=== PATIENT | female | born 1940 | race Caucasian/White ===

== ENCOUNTER 2017-05-14 18:52 | Inpatient (IN) | payer MEDICARE, OTHER ==
--- OUTSIDE RECORDS SUMMARY | 2017-05-14 18:55 | XMS ---
:1940 Author Organization [facility] Care Team Providers Name Role Phone SHANELLE CAMPOS Unavailable Unavailable BETH, SHANELLE Unavailable Unavailable BETH, SHANELLE Unavailable Unavailable BETH, SHANELLE Unavailable Unavailable BETH, SHANELLE Unavailable Unavailable BETH, SHANELLE Unavailable Unavailable BETH, SHANELLE Unavailable Unavailable BETH, SHANELLE Unavailable Unavailable OZDIL, SALBADOR Unavailable Unavailable OZDIL, SALBADOR Unavailable Unavailable OZDIL, SALBADOR Unavailable Unavailable OZDIL, SALBADOR Unavailable Unavailable OZDIL, SALBADOR Unavailable Unavailable OZDIL, SALBADOR Unavailable Unavailable Mak Freire Unavailable Unavailable Mak Freire Unavailable Unavailable Jono, Balamurugan Unavailable Unavailable Jono, Balamurugan Unavailable Unavailable Mini, Eric Unavailable Unavailable PATURU, KARANAKARA Unavailable Unavailable PATURU, KARANAKARA Unavailable Unavailable Encounters Encounter Providers Location Date Indications Data Source(s) Outpatient Attender: SALBADOR 11/11/2016 DANIEL WINTERS MD 08:24:00 AM CDT - 11/11/2016 08:24:00 AM CDT Inpatient Attender: SALBADOR 04/17/2016 DANIEL WINTERS MD 11:35:00 AM CDT - 04/18/2016 03:04:00 PM CDT Outpatient Attender: 01/14/2016 [facility] Balamurugan 01:34:00 AM syncope Jono CDT - MDAdmitter: SHANELLE 01/16/2016 BETH 06:52:00 PM CDT Inpatient Attender: 12/22/2015 DANIEL TORRES 10:46:00 PM CDT - 12/25/2015 05:39:00 PM CDT Inpatient Attender: Mak 12/25/2015 DANIEL Freire MD 05:52:00 PM CDT - 01/08/2016 11:32:00 AM CDT Inpatient Attender: Eric 04/27/2015 DANIEL Morse MD 12:06:00 PM CDT - 04/28/2015 06:41:00 PM CDT Outpatient Attender: SALBADOR 10/02/2014 DANIEL WINTERS MD 10:16:00 AM 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 - 10/02/2014 10:16:00 AM 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 Insurance Providers Payer name Policy type Policy ID Covered Covered constitution party's Policy Plan / Coverage constitution party ID relationship to Syed Information type syed COMMERCIAL 2ND Other S [id number] MEDICARE B Medicare S [id number] Medicare NOT_VALID_[id number] Medicare NOT_VALID_[id number] Medicare [id number] Medicare NOT_VALID_L000 [id number] Medicare NOT_VALID_L000 [id number] Medicare NOT_VALID_[id number] Problems, Conditions, and Diagnoses Code Display Name Description Effective Dates Data Source(s) E03.9 Hypothyroidism, Hypothyroidism, 01/15/2016 MERVAT unspecified unspecified 12:00:00 AM CDT I95.1 Orthostatic hypotension Orthostatic 01/15/2016 MERVAT hypotension 12:00:00 AM CDT E87.1 Hypo-osmolality and Hypo-osmolality and 01/15/2016 MERVAT hyponatremia hyponatremia 12:00:00 AM CDT F41.9 Anxiety disorder, Anxiety disorder, 01/14/2016 MERVAT unspecified unspecified 01:34:00 AM CDT Z86.73 Prsnl hx of TIA (TIA), Personal history of 01/14/2016 MERVAT and cereb infrc w/o transient ischemic 01:34:00 AM CDT resid deficits attack (TIA), and cerebral infarction without residual deficits W18.30XD Fall on same level, Fall on same level, 01/14/2016 MERVAT unspecified, unspecified, 01:34:00 AM CDT subsequent encounter subsequent encounter S01.01XD Laceration without Laceration without 01/14/2016 MERVAT foreign body of scalp, foreign body of scalp, 01:34:00 AM CDT subs encntr subsequent encounter R32 Unspecified urinary Unspecified urinary 01/14/2016 MERVAT incontinence incontinence 01:34:00 AM CDT G91.9 Hydrocephalus, Hydrocephalus, 01/14/2016 MERVAT unspecified unspecified 01:34:00 AM CDT F32.9 Major depressive Major depressive 01/14/2016 MERVAT disorder, single disorder, single 01:34:00 AM CDT episode, unspecified episode, unspecified E03.9 Hypothyroidism, Hypothyroidism, 01/14/2016 MERVAT unspecified unspecified 01:34:00 AM CDT I73.9 Peripheral vascular Peripheral vascular 01/14/2016 MERVAT disease, unspecified disease, unspecified 01:34:00 AM CDT Z95.1 Presence of Presence of 01/14/2016 MERVAT aortocoronary bypass aortocoronary bypass 01:34:00 AM CDT graft graft Z95.5 Presence of coronary Presence of coronary 01/14/2016 MERVAT angioplasty implant and angioplasty implant 01:34:00 AM CDT graft and graft E78.5 Hyperlipidemia, Hyperlipidemia, 01/14/2016 MERVAT unspecified unspecified 01:34:00 AM CDT I10 Essential (primary) Essential (primary) 01/14/2016 MERVAT hypertension hypertension 01:34:00 AM CDT D72.829 Elevated white blood Elevated white blood 01/14/2016 MERVAT cell count, cell count, 01:34:00 AM CDT unspecified unspecified E87.1 Hypo-osmolality and Hypo-osmolality and 01/14/2016 MERVAT hyponatremia hyponatremia 01:34:00 AM CDT R55 Syncope and collapse Syncope and collapse 01/14/2016 MERVAT 01:34:00 AM CDT R55 Syncope and collapse Syncope and collapse 01/14/2016 MERVAT 01:34:00 AM CDT Z98.61 Coronary angioplasty Coronary angioplasty SDH status status I20.9 Angina pectoris, Angina pectoris, SDH unspecified unspecified F17.200 Nicotine dependence, Nicotine dependence, SDH unspecified, unspecified, uncomplicated uncomplicated I10 Essential (primary) Essential (primary) SDH hypertension hypertension E78.5 Hyperlipidemia, Hyperlipidemia, SDH unspecified unspecified R00.1 Bradycardia, Bradycardia, SDH unspecified unspecified I73.9 Peripheral vascular Peripheral vascular SDH disease, unspecified disease, unspecified E03.9 Hypothyroidism, Hypothyroidism, SDH unspecified unspecified I67.9 Cerebrovascular Cerebrovascular SDH disease, unspecified disease, unspecified E78.5 Hyperlipidemia, Hyperlipidemia, SDH unspecified unspecified Z95.1 Presence of Presence of SDH aortocoronary bypass aortocoronary bypass graft graft I25.10 Athscl heart disease of Aths[place] heart disease SDH [place] coronary artery of [place] coronary w/o ang pctrs artery w/o ang pctrs Z86.73 Prsnl hx of TIA (TIA), Prsnl hx of TIA (TIA), SDH and cereb infrc w/o and cereb infrc w/o resid deficits resid deficits I10 Essential (primary) Essential (primary) SDH hypertension hypertension I70.1 Atherosclerosis of Atherosclerosis of SDH renal artery renal artery I70.213 Athscl [place] arteries Athscl [place] arteries SDH of extrm w intrmt of extrm w intrmt jessie, bi legs jessie, bi legs F41.8 Other specified anxiety Other specified SDH disorders anxiety disorders 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 (current) SDH of aspirin use of aspirin Z79.01 senior living (current) use senior living (current) SDH of anticoagulants use of anticoagulants G47.00 Insomnia, unspecified Insomnia, unspecified SDH F10.10 Alcohol abuse, Alcohol abuse, SDH uncomplicated uncomplicated I73.9 Peripheral vascular Peripheral vascular SDH disease, unspecified disease, unspecified Z95.1 Presence of Presence of SDH aortocoronary bypass aortocoronary bypass graft graft I25.10 Athscl heart disease of [place] heart disease SDH [place] coronary artery of [place] coronary w/o ang pctrs artery w/o ang pctrs E03.2 Hypothyroidism due to Hypothyroidism due to SDH meds and oth exogenous meds and oth exogenous substances substances E78.5 Hyperlipidemia, Hyperlipidemia, SDH unspecified unspecified I10 Essential (primary) Essential (primary) SDH hypertension hypertension Z66 Do not resuscitate Do not resuscitate SDH R27.0 Ataxia, unspecified Ataxia, unspecified SDH G91.9 Hydrocephalus, Hydrocephalus, SDH unspecified unspecified I63.40 Cerebral infarction due Cerebral infarction SDH to embolism of unsp due to embolism of cerebral artery unsp cerebral artery Z88.0 Allergy status to Allergy status to SDH penicillin penicillin 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 F41.9 Anxiety disorder, Anxiety disorder, SDH unspecified unspecified F32.9 Major depressive Major depressive SDH disorder, single disorder, single episode, unspecified episode, unspecified F17.210 Nicotine dependence, Nicotine dependence, SDH cigarettes, cigarettes, uncomplicated uncomplicated N32.81 Overactive bladder Overactive bladder SDH I73.9 Peripheral vascular Peripheral vascular SDH disease, unspecified disease, unspecified E78.5 Hyperlipidemia, Hyperlipidemia, SDH unspecified unspecified Z95.1 Presence of Presence of SDH aortocoronary bypass aortocoronary bypass graft graft I25.10 [place] heart disease of [place] heart disease SDH [place] coronary artery of [place] coronary w/o ang pctrs artery w/o ang pctrs E03.9 Hypothyroidism, Hypothyroidism, SDH unspecified unspecified I10 Essential (primary) Essential (primary) SDH hypertension hypertension Z98.2 Presence of Presence of SDH cerebrospinal fluid cerebrospinal fluid drainage device drainage device E87.1 Hypo-osmolality and Hypo-osmolality and SDH hyponatremia hyponatremia I69.31 Cognitive deficits Cognitive deficits SDH following cerebral following cerebral infarction infarction 413.9 OTHER AND UNSPECIFIED ANGINA PECTORIS SDH ANGINA PECTORIS NEC/NOS V14.0 PERSONAL HISTORY OF HX-PENICILLIN ALLERGY SDH ALLERGY TO PENICILLIN V14.1 PERSONAL HISTORY OF HX-ANTIBIOT ALLERGY SDH ALLERGY TO OTHER NEC ANTIBIOTIC AGENT 311 DEPRESSIVE DISORDER NOT DEPRESSIVE DISORDER SDH ELSEWHERE CLASSIFIED NEC 300.00 ANXIETY STATE ANXIETY STATE NOS SDH UNSPECIFIED 244.9 UNSPECIFIED ACQUIRED HYPOTHYROIDISM NOS SDH HYPOTHYROIDISM 272.4 OTHER AND UNSPECIFIED HYPERLIPIDEMIA NEC/NOS SDH HYPERLIPIDEMIA 401.9 UNSPECIFIED ESSENTIAL HYPERTENSION NOS SDH HYPERTENSION 305.1 NONDEPENDENT TOBACCO TOBACCO USE DISORDER SDH USE DISORDER V45.81 POSTSURGICAL AORTOCORONARY BYPASS SDH AORTOCORONARY BYPASS STATUS 414.00 CORONARY COR ATH UNSP VSL SDH ATHEROSCLEROSIS OF NTV/GFT UNSPECIFIED TYPE OF VESSEL [place] OR GRAFT 786.59 OTHER CHEST PAIN CHEST PAIN NEC SDH 413.9 OTHER AND UNSPECIFIED ANGINA PECTORIS SDH ANGINA PECTORIS NEC/NOS 414.00 CORONARY COR ATH UNSP VSL SDH ATHEROSCLEROSIS OF NTV/GFT UNSPECIFIED TYPE OF VESSEL [place] OR GRAFT 401.9 UNSPECIFIED ESSENTIAL HYPERTENSION NOS SDH HYPERTENSION 272.4 OTHER AND UNSPECIFIED HYPERLIPIDEMIA NEC/NOS SDH HYPERLIPIDEMIA Surgeries/Procedures Procedure Date Indications Data Source(s) Fluoroscopy of R Low Extrem Art 04/17/2016 12:00:00 AM SDH using L Osm Contrast CDT Dilate of R Femor Art with 04/17/2016 12:00:00 AM SDH Drug-elut Intralum, Perc CDT Approach Fluoroscopy of R Low Extrem Art 04/16/2016 12:00:00 AM SDH using L Osm Contrast CDT Fluoroscopy of Bilateral Renal 04/16/2016 12:00:00 AM SDH Arteries using L Osm Contrast CDT Fluoroscopy of L Low Extrem Art 04/16/2016 12:00:00 AM SDH using L Osm Contrast CDT Dilation of Left Popliteal 04/16/2016 12:00:00 AM SDH Artery, Percutaneous Approach CDT Dilate of L Femor Art with 04/16/2016 12:00:00 AM SDH Drug-elut Intralum, Perc CDT Approach Dilation of L Renal Art with 04/16/2016 12:00:00 AM SDH Intralum Dev, Perc Approach CDT INSERT TEMP BLADDER CATH 01/14/2016 12:00:00 AM MERVAT CDT RPR S/N/AX/GEN/TRNK2.6-7.5CM 01/14/2016 12:00:00 AM MERVAT CDT Receptive/Expressive Language 12/27/2015 12:00:00 AM SDH Treatment CDT Communicative/Cognitive 12/27/2015 12:00:00 AM SDH Integration Skills Treatment CDT Gait Training/Ambulat Treatment 12/27/2015 12:00:00 AM SDH using Assist Equipment CDT Bed Mobility Treatment 12/27/2015 12:00:00 AM SDH CDT Transfer Training Treatment using 12/27/2015 12:00:00 AM SDH Assist Equipment CDT Therapeutic Exercise Treatment of 12/27/2015 12:00:00 AM SDH Musculosk Up Back/UE CDT Bathing/Showering Techniques 12/27/2015 12:00:00 AM SDH Treatment CDT Dressing Techniques Treatment 12/27/2015 12:00:00 AM SDH CDT Monitor of Central Nervous Electr 12/24/2015 12:00:00 AM SDH Activity, Real Estate Management Specialist Approach CDT
[2017-05-14 20:11] LABS: #Eosinphils 0.1 thou/uL (0.0-0.7); #Lymphocytes 1.8 thou/uL (1.20-3.40); #Monocytes 0.6 thou/uL (0.11-0.59); #Neutrophils 3.7 thou/uL (1.40-6.50); %Basophils 0.1 % (0.0-1.0); %Eosinophils 1.6 % (0.0-10.0); %Lymphocytes 28.7 % (21.0-51.0); %Monocytes 9.9 % (0.0-10.0); Hematocrit 35.6 % (36.0-47.0); Mean Platelet Volume 6.9 fL (7.4-10.4); Red Blood Cell (RBC) Count 3.59 mill/uL (4.20-5.40); White Blood Cell (WBC) Count 6.2 thou/uL (4.8-10.8)
[2017-05-14 20:36] LABS: ALT (SGPT) 14 U/L (8-55); AST (SGOT) 18 U/L (5-34); Alkaline Phosphatase 108 U/L (40-150); Anion Gap 15 mmol/L (10-20); BUN (Urea Nitrogen) 8 mg/dL (9.8-20.1); Bilirubin, Total 0.4 mg/dL (0.2-1.2); Calc. Creatinine Clearance 0 mL/min (70-130); Calcium 8.8 mg/dL (7.8-10.44); Carbon Dioxide 22 mmol/L (23-31); Chloride 105 mmol/L (98-107); Estimated GFR-MDRD 79; Globulin 2.5 g/dL (2.4-3.5); Protein, Total 6.4 g/dL (6.0-8.3)
[2017-05-14] MEDS ORDERED: Acetaminophen/Codeine 30-300mg Tablet PO PRN ×2 (22:31)
[2017-05-14 22:44] LABS: PTT 34.6 SEC (22.9-36.1); Prothrombin Time 13.7 SEC (12.0-14.7)
[2017-05-14] MEDS ORDERED: Piperacillin/Tazobactam 3.375 GM in Sodium Chloride 0.9% 100 ML IVPB SCH (23:00)
--- NOTE | 2017-05-15 00:15 | MRI ---
MRI OF THE LUMBAR SPINE WITHOUT CONTRAST: 05/14/17 INDICATION: 76-year-old female with postop incision leaking; history of back surgery on April 01 with history of wound drainage since . TECHNIQUE: Multiplanar and multisequence MR images were obtained of the lumbar spine without IV contrast. No co mparisons are available. FINDINGS: There is postsurgical change of laminectomy at L4 with a right partial laminotomy at L5. There is a prominent, heterogeneous, but predominantly T2 hyperintense signal abnormality seen posterior to the thecal sac at the operative site spanning L4 through the superior aspect of L5 measuring 2.5 x 2.7 x 5.7 cm in its greatest mediolateral, AP and craniocaudal dimensions respectively. There is some so ft tissue gas seen superficially near the incision site overlying the posterior spine on image 16 of series 3. Conus is seen to terminate at approximately L1. At L5-S1, there is a broad based bulge with facet joint degenerative change without appreciable cent ral canal or neural foraminal narrowing. At L4-5, there is a broad based bulge with facet joint degenerative change inducing moderate to zeke re right and mild left neural foraminal narrowing. At L3-4, there is a broad based disc osteophyte complex with facet joint degenerative change inducin g mild central canal narrowing. There is mild to moderate bilateral neural foraminal narrowing. At L2-3, there is a broad based bulge with facet joint degenerative change and mild central canal na rrowing with mild to moderate left neural foraminal narrowing. At L1-2, there is a broad based bulge with facet joint degenerative change. At T12-L1, there is no appreciable central canal or neural foraminal narrowing. IMPRESSION: 1. Postoperative changes of laminectomy at L4 and partial laminotomy at L5 with suspected posto perative fluid collection seen at the laminectomy sites at L4 and L5. 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 Recommend appropriate clinical followup. 2. Moderate to severe right and mild left sided neural foraminal narrowing at L4-5. 3. Mild to moderate bilateral neural foraminal narrowing at L3-4. 4. Mild to moderate left sided neural foraminal narrowing at L2-3. POS: [facility]
[2017-05-15 00:35] VITALS: BMI 20.2
[2017-05-15] MEDS: Sodium Chloride 0.9% 1,000 ML IV SCH ×2 (00:52→17:23)
[2017-05-15] MEDS: Levothyroxine Sodium 100 MCG TAB PO SCH (05:25)
--- NOTE | 2017-05-15 07:04 | HP ---
HISTORY OF PRESENT ILLNESS: Ms. Carbajal comes in to the Emergency Department tonight at [facility] with a lumbar incision that is dehisced and draining at most inferior aspect. She has a previous L3-L4 laminectomy with Dr. Olsen on 04/01. The incision started draining last week on . The fluid looks green and thick. She was started on Keflex by Dr. Olsen at that time and she has been taking the Keflex daily. She came in for evaluation of the lumbar spinal incision and drainage. Neurosurgery was consulted as she was having low back pain and we ordered an MRI. She does have a history of being on Plavix and aspirin. PAST MEDICAL HISTORY: Includes hypertension,brain cyst. PAST SURGICAL HISTORY: Includes L3-L4 laminectomy with Dr. Olsen on 04/01/2017 , thoracic CABG x3, cardiac stent x3, leg stent left x2 and right x1, brain shunt left and hysterectomy. PSYCHIATRIC HISTORY: Includes anxiety. SOCIAL HISTORY: Includes patient drinks every day, less than 5 drinks per day. She currently uses tobacco and smokes about a half pack a day. CURRENT MEDICATIONS: No recorded medications. ALLERGIES: No known drug allergies. REVIEW OF SYSTEMS: Patient admits to lumbar spinal drainage from incision postop. All other review of systems is negative, unless otherwise stated in the above HPI. PHYSICAL EXAMINATION: VITAL SIGNS: Have been reviewed and she is afebrile and she has got stable vital signs. GENERAL: The patient appears nontoxic and appears pain free. Alert and oriented to person, place and time. HEENT: Normocephalic and atraumatic. Hearing intact. Moist mucous membranes. Eyes: Pupils are equal and reactive to light. Extraocular muscles are intact. Sclerae is white and nonicteric. RESPIRATORY: The patient has bilateral symmetric chest rise. Appears to be in no shortness of breath. CARDIOVASCULAR: The patient has regular rate and rhythm, normal S1 and S2 heart sounds. Appears to have no distal cyanosis or clubbing. BACK: Include findings of the incision as well approximated small opening in the inferior aspect drainage that is greenish purulent discharge. Range of motion is normal and there is no tenderness to the midline lumbar spine. EXTREMITIES: Upper extremity shows exam is normal, has good strength bilaterally in the upper extremities. Pulses are equal and symmetric in the brachial and radial pulses. Lower extremity: Patient has bilateral 5/5 strength in the lower extremity. She has good pulses in the posterior tibial pulse. NEUROLOGIC: The patient is alert and oriented x3. Cranial nerves II-XII are grossly intact. Her speech is fluent and she answered my questions appropriately. There are no focal motor deficits. There are no focal sensory deficits on exam. ASSESSMENT: Ms. Christina Carbajal is a 76-year-old female with a postoperative lumbar spinal infection. PLAN: I will admit to Neurosurgery service. We will start her on IV vancomycin and Zosyn. I will consult Dr. Santoyo, Infectious Disease for his recommendations. The wound has been cultured in the ER, so we will be awaiting cultures. An MRI of the lumbar spine showed a fluid collection under the area of the incision on the lumbar spine. Patient's CRP on chemistry exam is 4.28 and on the hematology exam, ESR is 3.9 with a white blood cell count of 6.2. Her hemoglobin is 12.1. She can continue to have regular diet. We will stop all aspirin and Plavix or any blood thinners or fish oil. I have reviewed the images with Dr. Rondon, he agrees with my plan and we will see her in the morning for further recommendations. If there are any further questions, please feel free to contact Neurosurgery. [facility]
[2017-05-15] MEDS ORDERED: Sodium Bicarbonate 2.4 MEQ/5 ML ONE (11:00)
[2017-05-15] MEDS: Polyethylene Glycol 3350 17 GM Packet PO SCH (12:03)
[2017-05-15] MEDS: Vancomycin HCl 750 MG in Sodium Chloride 0.9% 250 ML 250 ML IVPB SCH ×2 (12:03→22:52)
[2017-05-15] MEDS: Valsartan 80 MG TAB PO SCH (12:04)
[2017-05-15] MEDS: Isosorbide Dinitrate 20 MG TAB PO SCH (12:05)
[2017-05-15] MEDS: Senokot S 8.6-50 MG TAB PO SCH ×2 (12:05→20:00)
[2017-05-15 14:01] LABS: BF Reference Range Comment Note:
--- NOTE | 2017-05-15 14:01 | CT ---
CT GUIDED POSTERIOR SPINAL FLUID ASPIRATION: HISTORY: Possible abscess along the posterior post surgical site. TECHNIQUE: Informed consent was obtained from the patient. The L4 laminectomy, as well as the fluid collection were localized using CT guidance. The overlying skin was prepped and draped in the usual sterile m john. A 1% Lidocaine solution was used to anesthetize the overlying soft tissues. A 20 gauge spin al needle was placed into the collection. Approximately 1.5 mL of yellowish-clear fluid was removed . This was done in two separate aspirations. The specimens were sent to pathology. IMPRESSION: Successful CT-guided posterior L4 fluid aspiration. Pathology is pending. POS: [facility]
[2017-05-15 14:11] LABS: BF Color Yellow; RBC Count-Automated 10000 /cumm
[2017-05-15 14:46] LABS: Number Cells Counted-Fluids 100
--- NOTE | 2017-05-15 17:55 | PRG ---
DATE OF SERVICE: 05/15/2017 I personally interviewed and examined the patient and agree with documentation of FRACISCO Kraft ated 05/14/2017. Briefly, Christina Carbajal is a patient of Dr. Duarte who underwent low lumbar decompression about 6 weeks ago. She began having some drainage from her incision and had it oversewn. She returns with minim al dehiscence of the inferior portion of the incision and continued drainage. She is not troubled b y any headache. She does not have any positional headache. There are no radicular features of her pain. Back is not particularly painful and she is simply concerned about the drainage itself. On examination, there is good neurological function. She remains on Plavix for stroke prevention in the setting of carotid disease. She took her Plavix yesterday but not today. Because Ms. Carbajal is on Plavix, I do not recommend any surgical intervention at all. I am going to h ave our Neurosurgery team see if Radiology could advance a tiny needle through the musculature away from the previous incision site and away from superficial tissues into a small fluid collection post erior to the lamina at the depth of the incision. We will culture that separately from a superficia l culture, which we can take ourselves from fluid coming from the incision. With antimicrobial sens itivity, we can design an antibiotic regimen for her. I do not plan any surgical intervention given the Plavix issue.
[2017-05-15] MEDS: traZODone HCl 50 MG TAB PO SCH (20:00)
[2017-05-15] MEDS: Montelukast Sodium 10 mg Tablet PO SCH (20:01)
[2017-05-15] MEDS: Atorvastatin Calcium 40 MG TAB PO SCH (20:01)
[2017-05-15] MEDS ORDERED: Vancomycin HCl 1 GM in Premix Bag 1 BAG IVPB SCH (21:00)
[2017-05-16] MEDS: Levothyroxine Sodium 100 MCG TAB PO SCH (06:03)
--- NOTE | 2017-05-16 08:50 | PRG ---
DATE OF SERVICE: 05/16/2017 NEUROSURGERY PROGRESS NOTE SUBJECTIVE: I saw Ms. Carbajal this morning in her hospital room. She was resting comfortably. She un derwent her interventional radiology procedure yesterday as well as a swab of the superficial portio n of the incision. She still has no fevers. On examination this morning, there is good strength an d sensation in the lower extremities. Swab of the superficial area of dehiscence is growing some gram-positive cocci. A CT guided aspirat e of the lower fluid collection behind the dura above the lamina showed some serous fluid without an y organisms on Gram stain. We will await final cultures and adjust antibiotics. Dr. Olsen will be back tomorrow and consider a wound VAC or referral to wound care and I do think surgical interventi ons can be warranted.
[2017-05-16] MEDS: Polyethylene Glycol 3350 17 GM Packet PO SCH (09:44)
[2017-05-16] MEDS: Isosorbide Dinitrate 20 MG TAB PO SCH (09:46)
[2017-05-16] MEDS: Valsartan 80 MG TAB PO SCH (09:46)
[2017-05-16] MEDS: Sodium Chloride 0.9% 1,000 ML IV SCH (09:49)
[2017-05-16] MEDS: Senokot S 8.6-50 MG TAB PO SCH ×2 (09:49→21:22)
[2017-05-16] MEDS: Vancomycin HCl 750 MG in Sodium Chloride 0.9% 250 ML 250 ML IVPB SCH (11:10)
[2017-05-16] MEDS: Montelukast Sodium 10 mg Tablet PO SCH (21:22)
[2017-05-16] MEDS: traZODone HCl 50 MG TAB PO SCH (21:22)
[2017-05-16] MEDS: Atorvastatin Calcium 40 MG TAB PO SCH (21:23)
[2017-05-16 22:44] LABS: Vancomycin, Trough 10.1 ug/mL
[2017-05-17] MEDS: Vancomycin HCl 750 MG in Sodium Chloride 0.9% 250 ML 250 ML IVPB SCH ×3 (00:04→23:23)
[2017-05-17] MEDS: Sodium Chloride 0.9% 1,000 ML IV SCH ×2 (00:04→12:24)
--- NOTE | 2017-05-17 00:43 | CON ---
DATE OF CONSULTATION: 05/16/2017 REASON FOR CONSULTATION: Post-laminectomy infection. 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 History of also hypertension , dyslipidemia, and hysterectomy. ALLERGIES: None. MEDICATIONS: Hydralazine, Imdur, losartan, Norvasc, aspirin, Lipitor, Celexa, Cymbalta, Synthroid, and Singulair. SOCIAL HISTORY: Current smoker and drinks daily about 3 to 4 drinks plus wine. She lives with [facility] and in [place], both retired. FAMILY HISTORY: Cardiomyopathy and stomach cancer. PHYSICAL EXAMINATION: VITAL SIGNS: T-max 98.5, blood pressure 140/60, pulse 60, respirations 18, O2 sat 96%. GENERAL: Appears in no distress, awake, alert, and oriented. HEENT: Ocular movements are conjugate. Sclerae are white. Oral cavity is moist. NECK: Supple. LUNGS: Clear to auscultation and percussion. HEART: Normal. ABDOMEN: Soft. Not distended. BACK: Incision with the lower end with orifice, which is draining purulent exudate. EXTREMITIES: No joint inflammatory activity. NEUROLOGIC: Nonfocal. Cognitive function is intact. LABORATORY DATA: White cell count 6.2, hemoglobin 12, platelets 206 with a normal differential. IN R is 1.0. Sodium 139, creatinine 0.72. She has liver profile, which is normal. CRP 4.28 and aspir ate from the laminectomy sites fluid collection with 409 wbc's, 87% lymphocytes, and 8% neutrophils. The lumbar aspirate with no organisms seen, few wbc's seen and no growth at 24 hours, and from the lumbar abscess there is Staph aureus retrieved. Currently, the patient is on Zosyn and vancomycin. Lumbar spine MRI on 05/14/2017, which shows post-surgical laminectomy change L4-L5. T2 hyperinten se signal abnormality posterior to the thecal sac at the operative site spanning L4 through L5, marvel uring 2.5 x 2.7 x 5.7 cm and some soft tissue gas seen superficially near the incision. ASSESSMENT: 1. History of ventriculoperitoneal shunt for management of some cyst. 2. Recent laminectomy with improvement in symptoms, but now development of inflammatory changes. T he ascites associated with deeper fluid collection with measurements as described above. The nature of the fluid appears different than the nature of superficial exudate that has been submitted for c ultures. DISCUSSION: The patient has this area in the lower back and the main concern is that communication between the superficial wound in the deeper aspect of the area where the fluid collection is located close to the thecal sac. I think it is safer to assume that there is a communication and the fluid is colonized, the cultures are pending, though. The cyst aspiration CT was done on 05/15/2017. Th e patient had been given antimicrobials orally, which might have suppressed the growth of any bacter ia from that aspirate, so there is something to keep in the back of our minds is the interpretation of the results of cultures. She probably will need exploration of the area. A CSF leak is another possibility. I believe that the area was tested for a CSF leak. We will discontinue Zosyn and cont inue vancomycin alone until final results of cultures and then Dr. Olsen to decide tomorrow if he w ill explore the area prior to placement of negative pressure dressing. I would probably err on the side of treating her with IV antimicrobial therapy for few weeks to prevent any further complication s.
[2017-05-17] MEDS: Levothyroxine Sodium 100 MCG TAB PO SCH (06:22)
[2017-05-17] MEDS: Isosorbide Dinitrate 20 MG TAB PO SCH (10:45)
[2017-05-17] MEDS: Valsartan 80 MG TAB PO SCH (10:49)
[2017-05-17] MEDS: Polyethylene Glycol 3350 17 GM Packet PO SCH (10:49)
[2017-05-17] MEDS: Senokot S 8.6-50 MG TAB PO SCH ×2 (10:49→21:05)
[2017-05-17] MEDS ORDERED: Aspirin 325 MG TAB PO SCH (12:45)
--- NOTE | 2017-05-17 18:34 | PRG ---
DATE OF SERVICE: 05/17/2017 Ms. Carbajal was admitted over the weekend due to concerns of wound drainage. I have seen her in clinic on Wednesday for a pinhole area in her wound that was draining slightly yellow-tinged fluid that ap peared to be serous. She did not have any other systemic signs of infection or fever. We initiated antibiotic therapy and on Wednesday I was contacted, 2 days after, she felt the drainage had changed m ore green and thicker content. As such she come to the emergency room to be evaluated as I was conc erned about infection. Over the weekend she had a CT guided aspiration of the deeper fluid collecti on that in my opinion on MRI appears quite cleared to be a seroma. This has not grown out any bacte guillermo nor was it positive on Gram stain. Further the cell type appears to be lymphocytic nature and more consistent with this sterile postoperative seroma. This is bright on T2 whereas just under her wound, there is a T2 hypointense region in the area of the fat just beneath the skin. I suspect th is is the area that treating the drainage. I do not suspect that she has a deep infection. She has not had fever. She has not have increased back or leg pain and frankly appears to be doing very we ll both clinically and radiologically in regards to original reason, we did the surgery. I am shayne rned about the superficial area of dehiscence in the subcutaneous region that is essentially related to a space of fat necrosis and possibly even an infection as we do have a positive growth of oxacil gregory sensitive Staph aureus from the superficial collection that is draining out of the wound. The d rainage has reduced both on my observation this morning compared to last Wednesday and the patient's opinion. There is a mild amount of drainage on the dressing this morning, whereas before she was c hanging the dressing up to 4 times daily. This is the first time that has been changed since 7:00 p .m. last night and I am seeing her at 7:00 a.m. this morning. I looked at her temperature curve. S he has been afebrile. She does not have leukocytosis. She has mildly elevated sed rate and does yip ve an elevated CRP as such. Neurologically, she has done very well. What I would like to do at this point and I have discussed her case with Dr. Santoyo and my partner, Dr. Rondon to saw her over the weekend. I would like to continue the IV vancomycin. I suspect she has a superficial wound infection as noted early in my no te and what I would like to do is treat her with the IV vancomycin today and perhaps to the start of tomorrow, but initiate oral Levaquin today. It appears that the only growth that we have is sensit isis to Levaquin. I do think that she is responding to the oral antibiotics. I think that is taking her back to surgery is not without risk obviously, but it particular from Ms. Carbajal, she has bilater al carotid stenosis and as such, she is off of her Plavix currently and has been since Wednesday. I wi ll initiate her back on full strength aspirin to provide her with some protection against TIA is fol lowing her surgery last month. She did develop symptoms of TIA just off her antiplatelet medication . She is even being scheduled by Dr. Rea for surgery on her carotids. I think that allowing her to be on aspirin at this point, further for the foreseeable future, allows us the opportunity should we need to go back to surgery, we will be able to do so. The problem with Plavix is obviously that significantly limits operative intervention for perhaps a week. I would not be against operating w ith the patient on full strength aspirin, however, only should have been necessary. We will follow her wound today and then to tomorrow. I discussed the case again with Dr. Santoyo, we will plan for a couple weeks of oral antibiotics at this point and follow up closely in my clinic. I discussed all this with the patient, she understands the plan. She is appreciative of the evaluation.
[2017-05-17] MEDS: traZODone HCl 50 MG TAB PO SCH (21:06)
[2017-05-17] MEDS: Montelukast Sodium 10 mg Tablet PO SCH (21:06)
[2017-05-17] MEDS: Atorvastatin Calcium 40 MG TAB PO SCH (21:06)
--- NOTE | 2017-05-17 21:28 | HP ---
Date of service: 05/17/2017 SUBJECTIVE: Ms. Carbajal is feeling well. No headaches, respiratory symptoms. No abdominal pain to sp eak of. Low back pain. OBJECTIVE: VITAL SIGNS: She is afebrile. BP 140/65, pulse 58, respirations 14-20, O2 saturation 95%. GENERAL: Appears in no distress, awake, alert, oriented. The wound is with less drainage. LUNGS: Clear. HEART: S1, S2, regular rate. NEUROLOGIC: Unchanged. LABORATORY DATA: White cell count 6.2 and the culture is still negative from the aspirate. The cul ture from the open wound was Staphylococcus aureus which is methicillin susceptible. ASSESSMENT AND DISCUSSION: Laminectomy with now what appears to be a superficial infection. After discussion with Dr. Olsen, I believe that if the aspirate culture is still negative, then we can tr ansition her to quinolone, for example, to continue treatment in the outpatient setting. I explaine d to the patient that there is still a risk of recrudescence of the infection. In that case, she wo uld require surgical debridement again and then IV antimicrobials, but hopefully, this will take car e of the problem.
[2017-05-18] MEDS: Sodium Chloride 0.9% 1,000 ML IV SCH ×2 (02:58→15:29)
[2017-05-18] MEDS: Levothyroxine Sodium 100 MCG TAB PO SCH (05:49)
[2017-05-18] MEDS ORDERED: Aspirin 325 MG TAB PO SCH (09:00)
[2017-05-18] MEDS: Valsartan 80 MG TAB PO SCH (11:25)
[2017-05-18] MEDS: Isosorbide Dinitrate 20 MG TAB PO SCH (11:25)
[2017-05-18] MEDS: Senokot S 8.6-50 MG TAB PO SCH (11:27)
[2017-05-18] MEDS: Polyethylene Glycol 3350 17 GM Packet PO SCH (11:27)
[2017-05-18] MEDS: Vancomycin HCl 750 MG in Sodium Chloride 0.9% 250 ML 250 ML IVPB SCH (11:33)
--- NOTE | 2017-05-18 15:57 | PRG ---
DATE OF SERVICE: 05/18/2017 SUBJECTIVE: Ms. Carbajal who has developed improvement in her wound drainage. I can express nothing fr om her wound this morning and the dressing has just been changed by nursing team, which should there is very minimal amount of drainage. We will continue to watch this morning. We have initiated Lev aquin as I discussed with Dr. Santoyo, her cultures. I do not suspect she has a deep wound infection. I discussed this also with the patient. We may be able to dismiss her later today depending upon how she is doing and how wound is doing. We have also initiated aspirin. I have asked her to hold her Plavix and in follow up in the next week or two.
[2017-05-18 16:15] VITALS: BP 151/73; TEMP 98.4
--- NOTE | 2017-05-19 11:06 | DIS ---
DATE OF AMDISSION: 05/16/2017 DATE OF DISCHARGE: 05/18/2017 Shankar Zhang PA-C dictating for Dr. Akbar Olsen. DISCHARGE DIAGNOSIS: Include postoperative lumbar wound dehiscence. HOSPITAL COURSE: Ms. Carbajal presented to [place] emergency room due to postoperative wound drainag e and quite an amount of superficial dehiscence. She did not complain of significant low back pain. Due to the fact that she was on Plavix for carotid stenosis. No surgery was performed on the isabel ent and she was sent home with appropriate postoperative wound care and follow up appointment. At t he time of discharge, the patient did not complain of low back pain or leg pain. We will continue t o monitor the patient's fluid and at the time of discharge, the patient was doing well again with po stoperative education and follow up scheduled.
== END 2017-05-18 19:00 | disposition home or self-care (01) | DRG 982 ==
LOC: ERS 18:52 → 2SW 22:00 → SURG A 05-16 13:37 → OBSVTOIN 05-16 14:13
PROVIDERS: ADMIT Neurological Surgery; ATTEND Neurological Surgery
PROC: 009Y3ZX Drainage of Lumbar Spinal Cord, Percutaneous Approach, Diagnostic (ICD-10-PCS; principal; 2017-05-16)
DX: T81.31XA Disruption of external operation (surgical) wound, not elsewhere classified, initial encounter (principal); T81.4XXA Infection following a procedure, initial encounter; B95.61 Methicillin susceptible Staphylococcus aureus infection as the cause of diseases classified elsewhere; M96.842 Postprocedural seroma of a musculoskeletal structure following a musculoskeletal system procedure; I65.23 Occlusion and stenosis of bilateral carotid arteries; Z79.01 Long term (current) use of anticoagulants; Z79.82 Long term (current) use of aspirin; Z95.5 Presence of coronary angioplasty implant and graft; Z95.1 Presence of aortocoronary bypass graft; F41.9 Anxiety disorder, unspecified; F17.210 Nicotine dependence, cigarettes, uncomplicated; I10 Essential (primary) hypertension; E78.5 Hyperlipidemia, unspecified
CPT/HCPCS: 36415; 49060; 72148; 77012; 80053; 80202; 85025; 85060; 85610; 85652; 85730; 86140; 87040; 87070; 87077; 87186; 87205; 89051; 96365; J2543; J3370; J7050

== ENCOUNTER 2017-05-21 18:44 | Inpatient (IN) | payer MEDICARE, OTHER ==
--- OUTSIDE RECORDS SUMMARY | 2017-05-21 18:47 | XMS ---
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 - 10/02/2014 10:16:00 AM AUTOMOTIVE LOT ATTENDANT Insurance Providers Payer name Policy type Policy ID Covered Covered alliance party's Policy Plan / Coverage alliance party ID relationship to Syed Information type syed COMMERCIAL 2ND Other S [id number] MEDICARE B Medicare S [id number] Medicare [id number] Medicare [id number] Medicare [...] heart disease of [place] heart disease [facility] [place] coronary artery of [place] coronary w/o ang pctrs artery w/o ang pctrs Z86.73 Prsnl hx of TIA (TIA), Prsnl hx of TIA (TIA), [facility] and cereb infrc w/o and cereb infrc w/o resid deficits resid deficits I10 Essential (primary) Essential (primary) SD[facility] hypertension hypertension I70.1 Atherosclerosis of Atherosclerosis of SD[facility] renal artery renal artery I70.213 [place] arteries [place] arteries SD[facility] of extrm w intrmt of extrm w intrmt jessie, bi legs jessie, bi legs F41.8 Other specified anxiety Other specified [facility] disorders anxiety disorders 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 (current) SD[facility] of aspirin use of aspirin Z79.01 half-way (current) use half-way (current) SD[facility] of anticoagulants use of anticoagulants G47.00 Insomnia, unspecified Insomnia, unspecified SDH F10.10 Alcohol abuse, Alcohol abuse, SDH uncomplicated uncomplicated I73.9 Peripheral vascular Peripheral vascular SD[facility] disease, unspecified disease, unspecified Z95.1 Presence of Presence of SD[facility] aortocoronary bypass aortocoronary bypass graft graft I25.10 [place] heart disease of [place] heart disease [facility] [place] coronary artery of [place] coronary w/o ang pctrs artery w/o ang [...] heart disease of [place] heart disease [facility] [place] coronary artery of [place] coronary w/o ang pctrs artery w/o ang [...] ATHEROSCLEROSIS OF NTV/GFT UNSPECIFIED TYPE OF VESSEL [place] OR GRAFT 786.59 OTHER CHEST PAIN CHEST PAIN NEC SD[facility] 413.9 OTHER AND UNSPECIFIED ANGINA PECTORIS SDH ANGINA PECTORIS NEC/NOS 414.00 CORONARY COR ATH UNSP VSL SD[facility] ATHEROSCLEROSIS OF NTV/GFT UNSPECIFIED TYPE OF VESSEL [place] OR GRAFT 401.9 UNSPECIFIED ESSENTIAL HYPERTENSION NOS [...] Nervous Electr 12/24/2015 12:00:00 AM SD[facility] Activity, Hybrid [employer]iv[employer] Trader Approach CDT
[2017-05-21] MEDS ORDERED: Ondansetron HCl/PF 4 MG/2 ML Vial ONE (19:19)
[2017-05-21] MEDS ORDERED: Vancomycin HCl 1 GM in Premix Bag 1 BAG IVPB SCH (19:30)
[2017-05-21 20:04] LABS: #Eosinphils 0.2 thou/uL (0.0-0.7); #Lymphocytes 2.3 thou/uL (1.20-3.40); #Monocytes 0.6 thou/uL (0.11-0.59); #Neutrophils 5.6 thou/uL (1.40-6.50); %Basophils 0.6 % (0.0-1.0); %Eosinophils 1.8 % (0.0-10.0); %Lymphocytes 26.6 % (21.0-51.0); %Monocytes 6.7 % (0.0-10.0); Hematocrit 38.3 % (36.0-47.0); Mean Platelet Volume 6.6 fL (7.4-10.4); Red Blood Cell (RBC) Count 3.88 mill/uL (4.20-5.40); White Blood Cell (WBC) Count 8.7 thou/uL (4.8-10.8)
[2017-05-21] MEDS ORDERED: HYDROcodone/Acetaminophen 7.5/325 mg Tablet PO PRN (20:04)
[2017-05-21] MEDS ORDERED: Mag-Al 1200 mg/1200 mg/30 ML UDCUP PO PRN (20:04)
[2017-05-21] MEDS ORDERED: Morphine Sulfate 2 MG/ML SYRINGE SLOW IVP PRN (20:04)
[2017-05-21] MEDS ORDERED: Acetaminophen 325 MG TAB PO PRN (20:04)
[2017-05-21] MEDS ORDERED: Fleet Enema 133 ML BOT PR PRN (20:04)
[2017-05-21] MEDS ORDERED: Milk Of Magnesia 30 ML UDCUP PO PRN (20:04)
[2017-05-21] MEDS ORDERED: Bisacodyl 10 MG SUPP PR PRN (20:04)
[2017-05-21] MEDS ORDERED: Acetaminophen/Codeine 30-300mg Tablet PO PRN (20:04)
[2017-05-21] MEDS ORDERED: Promethazine HCl 25 MG/ML VIAL IM PRN (20:04)
[2017-05-21] MEDS ORDERED: tiZANidine HCl 4 MG TAB PO PRN (20:04)
[2017-05-21 20:24] LABS: PTT 31.5 SEC (22.9-36.1); Prothrombin Time 13.9 SEC (12.0-14.7)
[2017-05-21 20:26] LABS: ALT (SGPT) 17 U/L (8-55); AST (SGOT) 18 U/L (5-34); Alkaline Phosphatase 129 U/L (40-150); Anion Gap 16 mmol/L (10-20); BUN (Urea Nitrogen) 16 mg/dL (9.8-20.1); Bilirubin, Total 0.3 mg/dL (0.2-1.2); Calc. Creatinine Clearance 0 mL/min (70-130); Calcium 9.7 mg/dL (7.8-10.44); Carbon Dioxide 22 mmol/L (23-31); Chloride 102 mmol/L (98-107); Estimated GFR-MDRD 68; Globulin 2.9 g/dL (2.4-3.5); Protein, Total 7.1 g/dL (6.0-8.3)
[2017-05-21] MEDS: Montelukast Sodium 10 mg Tablet PO SCH (21:58)
[2017-05-21] MEDS: Senokot S 8.6-50 MG TAB PO SCH (21:58)
[2017-05-21] MEDS: Atorvastatin Calcium 40 MG TAB PO SCH (22:00)
[2017-05-21] MEDS ORDERED: Aspirin 325 MG TAB PO SCH (22:00)
[2017-05-21] MEDS: Sodium Chloride 0.9% 1,000 ML IV SCH (22:01)
[2017-05-21] MEDS: traZODone HCl 50 MG TAB PO SCH (22:01)
[2017-05-21 22:44] VITALS: BMI 25.8
--- NOTE | 2017-05-22 01:56 | CON ---
DATE OF CONSULTATION: 05/21/2017 Shankar Zhang PA-C, dictating for Akbar Olsen MD This is a 30 subsequent patient evaluation in which greater than 50% of the exam was spent in counse ling and coordinating patient's care. Remainder of the exam was spent in review of patient's medica l records and appropriate imaging studies. CHIEF COMPLAINT: Wound drainage. HISTORY OF PRESENT ILLNESS: Ms. Carbajal is a pleasant 76-year-old female, who presents to the emergenc y room for wound drainage. The patient has roughly 6 weeks postop laminectomy procedure with Dr. Yovani dailey. The patient has had an intermittent drainage over the past week to 10 days, but states that t mignon, although it was also roughly 2 days and then began again this morning. Drainage has remained at the most inferior aspect of the incision out of a pinhole site. The patient did present to the e mergency room last week and was cultured both superficial and deep. She is found to have a deep ser lamar that has remained sterile as her superficial wound did show a staph infection. The patient was on IV antibiotics and then later transitioned to Levaquin by mouth while at home. She has had home health checking on her and again states over the past one day her drainage returned. The most infer ior aspect of the incision has also been slightly tender and erythematous, however, no drainage. Th e patient also has a history of carotid stenosis and is on Plavix and aspirin; however, she has silvia ined off her Plavix since last week. PHYSICAL EXAMINATION: GENERAL: The patient is awake, alert, and appropriate. She has full strength in the bilateral lowe r extremities with intact sensation to light touch. Her incision is clean, dry, and intact with the exception of a pinhole site of the most inferior aspect to the incision. There is no active draina ge and I cannot expect any drainage from the site. However, the incision has covered and when I rem ove it, there is some serous drainage on the bandage. At the superior aspect of the incision, there is a romero size amount of erythema and a slight amount of tenderness to palpation of that area, but n o drainage. Otherwise, the incision is healing well. IMPRESSION AND DIAGNOSES: 1. Wound drainage status post lumbar laminectomy with Dr. Olsen roughly 6 weeks ago. 2. Carotid stenosis on aspirin. PLAN: We will admit the patient to the hospital and plan for wound washout tomorrow as well as woun d exploration of her lumbar wound. She noted to be n.p.o. at midnight, this has been ordered. She may remain on her aspirin, but we will need to remain off her Plavix. We will also order appropriat e labs. We will hold her p.o. Levaquin and start her back on IV vancomycin. I have also discussed the dosage with pharmacy and they will readjust these based on the patient's kidney function, which is pending. Ample opportunity was given to the patient and her family to discuss their questions an d concerns. They also understand that wound washout has been viable over the past several days that she would need to remain off her aspirin until tomorrow. We will continue to monitor the patient a nd again plan for surgical intervention in the morning. Please call with any questions or concerns.
[2017-05-22] MEDS: Levothyroxine Sodium 100 MCG TAB PO SCH (05:53)
[2017-05-22] MEDS ORDERED: Sodium Chloride 0.9% 10 ML ONE (07:42)
[2017-05-22] MEDS ORDERED: Bacitracin Zinc Ointment 30 gm TUBE ONE (07:42)
[2017-05-22] MEDS ORDERED: Thrombin 5000 UNITS/5 ML VIAL ONE (07:42)
[2017-05-22] MEDS ORDERED: Fentanyl 100 MCG/2 ML VIAL ONE ×2 (08:18→09:20)
[2017-05-22] MEDS ORDERED: Succinylcholine Chloride 20 MG/ML 10 ml SYRINGE FS ONE (08:24)
[2017-05-22] MEDS ORDERED: Propofol 200 MG/20 ML VIAL ONE (08:24)
[2017-05-22] MEDS ORDERED: Ondansetron HCl/PF 4 MG/2 ML Vial ONE ×2 (08:24→09:07)
[2017-05-22] MEDS ORDERED: Glycopyrrolate 0.2 MG/ML 5 ML SYRINGE ONE (08:24)
[2017-05-22] MEDS ORDERED: ePHEDrine/0.9% NaCl/PF SYRINGE 50 mg/10 ml ONE (08:24)
[2017-05-22] MEDS ORDERED: Labetalol HCl 100 MG/20 ML SYR ONE (08:24)
[2017-05-22] MEDS ORDERED: Dexamethasone 20 MG/5 ML VIAL ONE (08:24)
[2017-05-22] MEDS ORDERED: Ondansetron HCl/PF 4 MG/2 ML Vial IVP PRN (09:05)
[2017-05-22] MEDS ORDERED: Promethazine HCl 25 MG/ML VIAL SLOW IVP PRN (09:05)
[2017-05-22] MEDS ORDERED: Promethazine HCl 25 MG/ML VIAL IM PRN (09:05)
--- NOTE | 2017-05-22 10:01 | OP ---
Shankar Zhang PA-C dictating for Dr. Akbar Olsen. This is a brief operative note. SURGEON: Akbar Olsen MD MANAGER OPERATIONS: Shankar Zhang PA-C POSTOPERATIVE DIAGNOSIS: Lumbar wound suture abscess. PROCEDURE: Incision and drainage of lumbar wound with exploration and cultures with all indicated p rocedures. SPECIMEN: Superficial wound fluid collection. BLOOD LOSS: 10 mL. FINDINGS: Same as postoperative diagnosis.
[2017-05-22] MEDS: Vancomycin HCl 1 GM in Premix Bag 1 BAG IVPB SCH ×2 (10:16→20:30)
[2017-05-22] MEDS ORDERED: Aspirin 325 MG TAB PO SCH (10:45)
--- NOTE | 2017-05-22 10:59 | OP ---
LOCATION: OR 12. WOUND TYPE: Type 4 wound. SURGEON: Akbar Olsen M.D. TRUST ADMINISTRATIVE ASSISTANT: Shankar Zhang PA-C. PREPROCEDURE DIAGNOSIS: Concern of superficial infection with sensitivity to Vicryl suture and conc cyndi of suture abscess. PROCEDURES: Reopening of lumbar wound with intraoperative cultures, debridement, irrigation and rec losure with new suture (non-Vicryl). DESCRIPTION OF PROCEDURE: After informed consent was obtained from the patient, the patient brought to OR 12. Proper patient pause and identification was carried out. She was placed under excellent general endotracheal anesthesia and positioned prone on the operating room table. A small pinhole area was identified in the wound and an area of raised erythema underneath the wound that was not op ened was also identified. My concern was superficial wound infection, likely related to Vicryl rela comfort abscess. Sterile cleansing, preparation and draping of the wound occurred. The wound was then opened with a combination of sharp, monopolar and blunt dissection. A small amount of purulent mate rial associated with Vicryl suture cephalad and caudal were both identified, these areas were cultur ed. The wound was then deepened and there was no evidence of deep wound infection identified at all . Copious irrigation then occurred. Hemostasis was maximized. The wound was then closed with PDS suture throughout and interrupted vertical mattress Ethilon suture on the skin. The patient then em erged from anesthesia. I should note, vancomycin powder was sprinkled in the wound.
--- NOTE | 2017-05-22 11:02 | PRG ---
DATE OF SERVICE: 05/22/2017 Ms. Carbajal is almost 7 to 8 weeks out from lumbar decompression. She has done very well in the postop erative period. From a neurological standpoint with resolution in her leg pain. Unfortunately, she has developed superficial wound drainage that originally improved with intravenous vancomycin, but then recurred with oral Levaquin. Further she also developed another area of raised erythema undern eath her wound. My concern is superficial suture abscess and essentially that she has an intoleranc e to Vicryl sutures. As such, I discussed with the patient that really the best way to go about monica ating her is to take her back to surgery, wash her wound out, irrigated, debride it and obviously sa mple intraoperative cultures prior to. She understands the risks are up to including wound healing issues such as infection, dehiscence, CSF leak, neurological issues such as stroke, or seizure. She understands these risks. She understands she also has cardiac and carotid risk factors. We will d o the surgery with her on full strength aspirin in an attempt to maximize her cardiac and cerebral p erfusion. I think we really do not have a good option here for this patient short of taking her yuriy k to surgery. As I am concerned that her wound will simply not heal unless the Vicryl sutures are r emoved. We will proceed with surgery.
[2017-05-22] MEDS: Valsartan 80 MG TAB PO SCH (12:05)
[2017-05-22] MEDS: Polyethylene Glycol 3350 17 GM Packet PO SCH (12:05)
[2017-05-22] MEDS: Isosorbide Dinitrate 20 MG TAB PO SCH (12:05)
[2017-05-22] MEDS: traMADol HCl 50 MG TAB PO PRN (12:06)
[2017-05-22] MEDS: Senokot S 8.6-50 MG TAB PO SCH ×2 (12:06→20:29)
[2017-05-22] MEDS: Sodium Chloride 0.9% 1,000 ML IV SCH (12:09)
[2017-05-22] MEDS: Aspirin 325 MG TAB PO SCH (20:27)
[2017-05-22] MEDS: Montelukast Sodium 10 mg Tablet PO SCH (20:28)
[2017-05-22] MEDS: Atorvastatin Calcium 40 MG TAB PO SCH (20:28)
[2017-05-22] MEDS: traZODone HCl 50 MG TAB PO SCH (20:32)
[2017-05-23] MEDS: Sodium Chloride 0.9% 1,000 ML IV SCH ×2 (00:28→13:08)
[2017-05-23] MEDS: Levothyroxine Sodium 100 MCG TAB PO SCH (05:14)
[2017-05-23 08:35] LABS: Vancomycin, Trough 14.1 ug/mL
[2017-05-23] MEDS: Polyethylene Glycol 3350 17 GM Packet PO SCH (08:42)
[2017-05-23] MEDS: Valsartan 80 MG TAB PO SCH (08:43)
[2017-05-23] MEDS: Isosorbide Dinitrate 20 MG TAB PO SCH (08:44)
[2017-05-23] MEDS: Senokot S 8.6-50 MG TAB PO SCH ×2 (08:44→21:28)
[2017-05-23] MEDS: Vancomycin HCl 1 GM in Premix Bag 1 BAG IVPB SCH ×2 (08:46→21:26)
[2017-05-23] MEDS: traMADol HCl 50 MG TAB PO PRN (11:01)
--- NOTE | 2017-05-23 11:31 | PRG ---
DATE OF SERVICE: 05/23/2017 Ms. Carbajal is postoperative day 1 following a superficial abscess, lumbar wound washout. Her culture remains negative at this point, although we are treating her as if it is Staphylococcus from the cynthia or wound swab. She is doing very well, mobilizing in the room. She has had no evidence of systemic infection. My thought is that, given the patient's pathology, treating her aggressively with perha ps a PICC line, vancomycin would be best over a prolonged course. Dr. Santoyo has been consulted.
--- NOTE | 2017-05-23 13:50 | CON ---
DATE OF CONSULTATION: 05/23/2017 HISTORY OF PRESENT ILLNESS: A 76-year-old whom I had seen recently in consultation when she present ed with a history of coronary artery disease and bypass graft surgery, chronic smoking and chronic l ow back pain who underwent laminectomy and then developed inflammatory changes. There was a deeper fluid collection close to the operative site and next to the spine, but this was felt to be a seroma in view of the characteristics of the fluid upon aspiration and therefore, the inflammatory process was felt to be circumscribed to the superficial layers of the skin. Staphylococcus aureus and meth icillin-sensitive retrieved from the site and the patient was treated with oral levofloxacin on disc harge planning. She returned with persistence of drainage. Dr. Olsen has gone back in and did a l imited I\T\D and again felt that this is limited to the superficial layer. Cultures are pending fro m the second procedure. Currently, Ms. Carbajal is feeling well, sitting and eating her lunch. No head aches, visual symptoms, sore throat, odynophagia, dysphagia, no cough or sputum production or chest pain, no abdominal pain or diarrhea. No genitourinary symptoms, back pain is mild. ALLERGIES: None. MEDICATIONS: Hydralazine, Imdur, losartan, Norvasc, aspirin, Lipitor, Celexa, Cymbalta, Synthroid, Singulair, and she is also receiving vancomycin. FAMILY HISTORY: Cardiomyopathy and gastric cancer. SOCIAL HISTORY: Current smoker, drinks daily about 3-4 drinks, lives with in [place]. PHYSICAL EXAMINATION: VITAL SIGNS: Essentially normal, mild elevation of systolic blood pressure. SKIN: Examination shows the area in the back with the area of limited debridement. No erythema not ed. Peripheral IV access. No lymphadenopathy. HEENT: Examination not remarkable. LUNGS: Clear. HEART: Normal. ABDOMEN: Soft, nondistended, no bladder distention. EXTREMITIES: No joint inflammatory process outside the area of involvement. NEUROLOGIC: Examination is nonfocal. LABORATORY DATA: White cell count 8.7, hemoglobin 13, and platelets 361. INR 1.1. Chemistry was u nremarkable. Thus far, the Gram stain from the second sample with no organisms are seen, few WBCs a nd RBCs present. ASSESSMENT: Superficial post-laminectomy infection with methicillin-suspectible Staphylococcus kaylen us, now with one area of residual superficial inflammatory process associated with one of the stitch es. This has been removed and I indeed again no evidence of deeper involvement. She is currently on vancomycin and we will maintain this regimen for the time being. My plan is to again discharge on oral regimen the same one that she had been on before. This again is depending o n the results of the second sample that was submitted for cultures.
[2017-05-23] MEDS: Atorvastatin Calcium 40 MG TAB PO SCH (21:27)
[2017-05-23] MEDS: Aspirin 325 MG TAB PO SCH (21:27)
[2017-05-23] MEDS: traZODone HCl 50 MG TAB PO SCH (21:27)
[2017-05-23] MEDS: Montelukast Sodium 10 mg Tablet PO SCH (21:27)
[2017-05-24] MEDS: Sodium Chloride 0.9% 1,000 ML IV SCH ×2 (04:18→18:21)
[2017-05-24] MEDS: Levothyroxine Sodium 100 MCG TAB PO SCH (06:43)
[2017-05-24] MEDS: Valsartan 80 MG TAB PO SCH (08:39)
[2017-05-24] MEDS: Senokot S 8.6-50 MG TAB PO SCH ×2 (08:39→20:59)
[2017-05-24] MEDS: Isosorbide Dinitrate 20 MG TAB PO SCH (08:39)
[2017-05-24] MEDS: Vancomycin HCl 1 GM in Premix Bag 1 BAG IVPB SCH ×2 (08:40→21:01)
[2017-05-24] MEDS: Polyethylene Glycol 3350 17 GM Packet PO SCH (08:40)
--- NOTE | 2017-05-24 12:04 | PRG ---
DATE OF SERVICE: 05/24/2017 This is a subsequent inpatient progress note. Ms. Carbajal is now postoperative day #2 having undergone incision and drainage of her lumbar wound for a suture abscess with cultures. The patient says she is doing well postoperatively. She has very little incisional back pain, but otherwise denies any radicular symptoms. Dr. Santoyo has been consulted to see the patient and notes that she may be able to be treated with oral antibiotics rather than with a PICC line and IV antibiotics. We will leave this up to him. The patient remains at without any deficits. Her incision was uncovered and t here is a scant amount of drainage at the most superior aspect of the incision and very superficial. This drainage is purulent in any way. Otherwise the incision is clean, dry, and intact. A t this time, the patient is stable for discharge surgically, but we will let Dr. Santoyo determine the next appropriate course of treatment regarding the antibiotics . We will check back later tod ay and either approve for discharge later today or tomorrow.
[2017-05-24] MEDS: Montelukast Sodium 10 mg Tablet PO SCH (21:00)
[2017-05-24] MEDS: traZODone HCl 50 MG TAB PO SCH (21:01)
[2017-05-24] MEDS: Aspirin 325 MG TAB PO SCH (21:01)
[2017-05-24] MEDS: Atorvastatin Calcium 40 MG TAB PO SCH (21:01)
[2017-05-25] MEDS: Sodium Chloride 0.9% 1,000 ML IV SCH ×2 (04:18→16:55)
[2017-05-25] MEDS: Levothyroxine Sodium 100 MCG TAB PO SCH (05:08)
--- NOTE | 2017-05-25 05:53 | PRG ---
DATE OF SERVICE: 05/24/2017 SUBJECTIVE: Feeling well. No back pain, no respiratory symptoms, no abdominal pain or diarrhea. OBJECTIVE: VITAL SIGNS: T-max 98.1. Other vital signs with slight elevation in systolic blood pressure. GENERAL: Awake, alert, oriented. LUNGS: Clear. HEART: Normal. ABDOMEN: Soft, not distended. BACK: Incision with no drainage. Moves all extremities equally. LABORATORY DATA: White cell count has not been repeated. The culture from the back negative thus far. ASSESSMENT AND DISCUSSION: Superficial post lami infection with MSSA, now with still residual inflammatory process. I have discussed with Dr. Olsen. He would like to treat this more aggressively to prevent further complications. DISCUSSION: We will continue on Rocephin and vancomycin for another 2 weeks. PICC line placement and discharge planning. ADONISD
[2017-05-25 08:20] LABS: Vancomycin, Trough 20.2 ug/mL
[2017-05-25] MEDS: Vancomycin HCl 1 GM in Premix Bag 1 BAG IVPB SCH ×2 (08:57→20:26)
[2017-05-25] MEDS: Valsartan 80 MG TAB PO SCH (08:58)
[2017-05-25] MEDS: Isosorbide Dinitrate 20 MG TAB PO SCH (09:02)
[2017-05-25] MEDS: Senokot S 8.6-50 MG TAB PO SCH ×2 (10:17→20:23)
[2017-05-25] MEDS: Polyethylene Glycol 3350 17 GM Packet PO SCH (10:17)
--- NOTE | 2017-05-25 12:56 | SPC ---
ULTRASOUND GUIDED LEFT UPPER EXTREMITY PICC LINE PLACEMENT: Date: 05-25-17 History: Post-operative infection low back. Fluoroscopy: Total time 1.1 minutes with total dose of 2033 mGy*cm\S\2. Technique: After informed consent was obtained, the patient was placed on the angiography table in supine posit ion. Left upper extremity was prepped and draped in the usual sterile fashion. An appropriate access site was determined with ultrasound guidance. Skin and subcutaneous tissues were infiltrated with buffered 1% Lidocaine for local anesthesia. Util izing concurrent real-time ultrasound guidance, the left upper extremity brachial vein was accessed utilizing micropuncture technique and concurrent real-time ultrasound guidance. 5 Hebrew peel-away s joseph was placed. Catheter was measured and cut to the appropriate length. Catheter was placed over the guidewire with tip position overlying the cavoatrial junction. Guidewire and peel-away sheath we re removed. The catheter was accessed and aspirated/flushed easily. The catheter was secured to the skin and dry sterile dressing was placed. The patient tolerated the procedure well and without immediate complication. FINDINGS: Technically successful placement of a single lumen 5 Hebrew 39.5 cm PICC line via the left brachial vein. Tip of the catheter was placed at the level of the cavoatrial junction. IMPRESSION: Technically successful left upper extremity PICC line placement. POS: NICOLE
--- NOTE | 2017-05-25 13:20 | PRG ---
DATE OF SERVICE: 05/25/2017 Ms. Carbajal is hospital day #4. She underwent a lumbar wound irrigation and debridement with intraoper ative cultures. The cultures have remained negative. We presume that it is Staph that we are treat ing based on a prior wound swab. Her wound is dry this morning and appears to be healing quite well . Systemically she has had no symptoms or signs of infection, neurologically she is intact and doin g very well. I would be fine with dismissal. My preference would be aggressive antibiotic therapy and I have discussed this with Dr. Santoyo, perhaps a PICC line placement and vancomycin. I have also discussed her case with Dr. Zachery Rea regarding the patient appears to have an intolerance to V icryl suture. She may be dismissed whenever the antibiotic regimen is finalized both in the hospita l and at home and finally we will arrange for followup in our clinic in a couple of weeks.
[2017-05-25] MEDS ORDERED: Heparin 1,000 UNITS/ML VIAL ONE (15:18)
[2017-05-25] MEDS: Aspirin 325 MG TAB PO SCH (20:23)
[2017-05-25] MEDS: Atorvastatin Calcium 40 MG TAB PO SCH (20:23)
[2017-05-25] MEDS: Montelukast Sodium 10 mg Tablet PO SCH (20:23)
[2017-05-25] MEDS: traZODone HCl 50 MG TAB PO SCH (20:23)
[2017-05-26] MEDS: Levothyroxine Sodium 100 MCG TAB PO SCH (05:39)
[2017-05-26] MEDS: Sodium Chloride 0.9% 1,000 ML IV SCH (06:37)
[2017-05-26 08:48] LABS: Vancomycin, Trough 19.1 ug/mL
[2017-05-26] MEDS: Isosorbide Dinitrate 20 MG TAB PO SCH (09:08)
[2017-05-26] MEDS: Senokot S 8.6-50 MG TAB PO SCH (09:09)
[2017-05-26] MEDS: Vancomycin HCl 1 GM in Premix Bag 1 BAG IVPB SCH (09:09)
[2017-05-26] MEDS: Valsartan 80 MG TAB PO SCH (09:09)
[2017-05-26] MEDS: Polyethylene Glycol 3350 17 GM Packet PO SCH (09:09)
--- NOTE | 2017-05-26 09:51 | PRG ---
DATE OF SERVICE: 05/26/2017 SUBJECTIVE: Ms. Carbajal is now postoperative day #4, having undergone incision and drainage and debrid ement of superficial suture abscess in the lumbar region. The patient states she is feeling well. She states her incision bothers her occasionally. She states currently today it is very itchy. She has been up walking, eating, voiding spontaneously and her pain is well controlled with oral medica tions. PHYSICAL EXAMINATION: She is awake, alert, and appropriate with full strength in the bilateral lowe r extremities. I did uncover her wound and there does not appear to be any active drainage. The in cision is closed with sutures and it appears as though it is healing well. There is no surrounding erythema or swelling. PLAN: I will have the nurse redress the incision today. The patient did have a PICC line placed ye sterday and Dr. Santoyo is managing the patient's antibiotics and will set up home health to help with the PICC line. At this time, the patient neurosurgically stable for discharge and will more than l ikely go home later today. We have arranged appropriate outpatient followup appointments in our [facility]i [facility]. Please call with any change in the patient's neurologic status. Otherwise, she is stable for discharge at this time. We will follow up with Dr. Santoyo regarding this.
[2017-05-26 16:30] VITALS: BP 150/66; TEMP 98.2
== END 2017-05-26 18:22 | disposition home health service (06) | DRG 857 ==
LOC: ERS 18:44 → SURG B 19:21 → OBSVTOIN 05-24 11:16
PROVIDERS: ADMIT Surgery; ATTEND Surgery
PROC: 0JB70ZZ Excision of Back Subcutaneous Tissue and Fascia, Open Approach (ICD-10-PCS; principal; 2017-05-24)
PROC: 02HV33Z Insertion of Infusion Device into Superior Vena Cava, Percutaneous Approach (ICD-10-PCS; 2017-05-25)
PROC: B548ZZA Ultrasonography of Superior Vena Cava, Guidance (ICD-10-PCS; 2017-05-25)
DX: T81.4XXA Infection following a procedure, initial encounter (principal); L02.212 Cutaneous abscess of back [any part, except buttock and flank]; I65.29 Occlusion and stenosis of unspecified carotid artery; B95.61 Methicillin susceptible Staphylococcus aureus infection as the cause of diseases classified elsewhere; I25.10 Atherosclerotic heart disease of native coronary artery without angina pectoris; Z95.1 Presence of aortocoronary bypass graft; G89.29 Other chronic pain; M54.5 Low back pain; F17.210 Nicotine dependence, cigarettes, uncomplicated; Z79.82 Long term (current) use of aspirin; I10 Essential (primary) hypertension; E78.5 Hyperlipidemia, unspecified; F41.9 Anxiety disorder, unspecified
CPT/HCPCS: 36415; 36569; 80053; 80202; 83605; 85025; 85610; 85730; 87040; 87070; 87205; 96374; 96375; A4216; C1751; J1100; J1644; J2270; J2405; J2704; J3010; J3370; J3490